=== PATIENT | male | born 1950 | race Hispanic/Latino ===

== ENCOUNTER 2021-07-09 19:59 | Emergency (ER) | payer OTHER ==
[~2021-07-09] VITALS: Ht 167.6 cm; Wt 77.6 kg
== END 2021-07-09 22:36 | disposition home or self-care (01) ==
LOC: ER 20:28
DX: M54.2 Cervicalgia (principal); M54.9 Dorsalgia, unspecified; M25.552 Pain in left hip; M25.571 Pain in right ankle and joints of right foot; V43.52XA Car driver injured in collision with other type car in traffic accident, initial encounter; Y92.488 Other paved roadways as the place of occurrence of the external cause
CPT/HCPCS: 70450; 72125; 99283